=== PATIENT | male | born 2000 | race Two or more races ===

== ENCOUNTER 2024-12-16 12:22 | Emergency (ER) | payer OTHER ==
[~2024-12-16] VITALS: Ht 177.8 cm; Wt 127.9 kg
[2024-12-16 13:22] VITALS: BP 150/85; PULSE 77; RESP 17; TEMP 97.7; O2SAT 97
--- NOTE | 2024-12-16 13:42 | ED.PDOC ---
Musculoskeletal HPI Comments A 24 YEAR OLD MALE PRESENTS TO THE ED WITH CHIEF COMPLAINT OF RIGHT ANKLE INJURY. 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 PATIENT RELAYS THAT HE NOW HAS INCREASED PAIN, SWELLING, AND BRUISING TO THE RIGHT ANKLE. PATIENT DENIES ANY NUMBNESS, WEAKNESS, TINGLING, OR FURTHER INJURY. NO OTHER SYMPTOMS REPORTED AT THIS TIME OF CARE. Chief Complaint: Lower Extremity Time Seen by MD: 13:39 Primary Care Provider: NONE Reviewed Notes: Nurses Notes, Medications, Allergies Allergies: Coded Allergies: NO KNOWN ALLERGIES (Unverified , 12/16/24) Home Meds Active Scripts Ibuprofen (Ibuprofen) 800 Mg Tab, 1 TAB PO TID, #30 TAB Prov:TALHA MURDOCK 12/16/24 Information Source: Patient Mode of Arrival: Ambulatory Location: Right Extremity Location: Ankle Timing: Days Prehospital treatment: None Severity: Moderate Able to Move Extremity: Yes Bear Weight: Fully Pain: Moderate Mechanism: Twisting Circumstances: Fall Onset of Symptoms: After Trauma Symptoms: Swelling, Pain DVT Risk Factors: NONE Last Tetanus: UTD Associated signs and symptoms: Ankle pain Past Medical History PAST MEDICAL HISTORY: Denies Surgical History: Denies all surgeries Family History Family History: Reviewed,noncontributory to illness Social History Smoker: Non-Smoker Alcohol: Denies ETOH Use Drugs: Denies Drug Use Lives In: Home Constitutional: denies: chills, diaphoresis, fatigue, fever, malaise, sweats, weakness, others EENTM: denies: blurred vision, double vision, ear bleeding, ear discharge, ear drainage, ear pain, ear ringing, eye pain, eye redness, hearing loss, mouth pain, mouth swelling, nasal discharge, nose bleeding, nose congestion, nose pain, photophobia, tearing, throat pain, throat swelling, voice changes, others Respiratory: denies: cough, hemoptysis, orthopnea, SOB at rest, shortness of breath, SOB with excertion, stridor, wheezing, others Cardiovascular: denies: chest pain, dizzy spells, diaphoresis, Dyspnea on exertion, edema, irregular heart beat, left arm pain, lightheadedness, palpitations, PND, syncope, others Gastrointestinal: denies: abdomen distended, abdominal pain, blood streaked bowels, constipated, diarrhea, dysphagia, difficulty swallowing, hematemesis, melena, nausea, poor appetite, poor fluid intake, rectal bleeding, rectal pain, vomiting, others Genitourinary: denies: burning, dysuria, flank pain, frequency, hematuria, inco ntinence, penile discharge, penile sore, pain, testicle pain, testicle swelling, urgency, others Neurological: denies: dizziness, fainting, headache, left sided numbness, left sided weakness, numbness, paresthesia, pre-existing deficit, right sided numbness, right sided weakness, seizure, speech problems, tingling, tremors, weakness, others Musculoskeletal: reports: joint pain, joint swelling, others (RT ANKLE PAIN AND SWELLING); denies: back pain, gout, muscle pain, muscle stiffness, neck pain Integumetry: denies: bruises, change in color, change in hair/nails, dryness, laceration, lesions, lumps, rash, wounds, others Allergic/Immunocompromised: denies: Difficulty Healing, Frequent Infections, Hives, Itching, others Hematologic/Lymphatic: denies: anemia, blood clots, easy bleeding, easy bruising, swollen glands, others Endocrine: denies: excessive hunger, excessive sweating, excessive thirst, excessive urination, flushing, intolerance to cold, intolerance to heat, unexplained weight gain, unexplained weight loss, others Psychiatric: denies: anxiety, bipolar disorder, depression, hopeless, panic disorder, schizophrenia, sleepless, suicidal, others All Other Systems: Reviewed and Negative Physical Exam General Appearance: No Apparent Distress, Obese HEENT: Normal ENT Inspection, PERRL/EOMI, Pharynx Normal, TMs Normal Neck: Full Range of Motion, Non-Tender, Normal, Normal Inspection Respiratory: Chest Non-Tender, Lungs Clear, No Accessory Muscle Use, No Respiratory Distress, Normal Breath Sounds Cardiovascular: No Edema, No JVD, No Murmur, No Gallop, Normal Peripheral Pulses, Regular Rate/Rhythm Breast Exam: Deferred Gastrointestinal: No Organomegaly, Non Tender, No Pulsatile Mass, Normal Bowel Sounds, Soft Genitalia: Deferred Pelvic: Deferred Rectal: Deferred Extremities: Decreased range of motion, No calf tenderness, Normal capillary refill, No pedal edema, Tender (AND MILD SWELLING ON RIGHT ANKLE, NO BONY TENDERNESS AND DEFORMITY. ) Musculoskeletal : Apperance: Normal Neurologic: Alert, clocksmith II-XII nml as Tested, No Motor Deficits, Normal Affect, Normal Mood, No Sensory Deficits Cerebellar Function: Normal Reflexes: Normal Skin: Dry, Normal Color, Warm Peripheral Pulses: 2+ carotid (R), 2+ carotid (L), 2+ dorsalis pedis (R), 2+ dorsalis pedis (L) Lymphatic: No Adenopathy Was a procedure done? Was a procedure done?: No Differential Diagnosis EXT Differential Diagnosis: Fracture, Sprain, Dislocation, Contusion, Strain, Bursitis X-Ray, Labs, Meds, VS Vital Signs Date Time Temp Pulse Resp B/P (MAP) Pulse Ox O2 Delivery O2 Flow Rate FiO2 12/16/24 13:22 97.7 77 17 150/85 (106) 97 97.7 12/16/24 13:22 77 12/16/24 12:40 97.7 77 17 150/85 (106) 98 97.7 PATIENT: DANUTA DANGT: [id number]: [id number] : 2000 LOC: ER ROOM / BED: / AGE / SEX: 24 / M ADM STATUS: REG ER SERVICE [id number] ORDERING PHYSICIAN: TALHA MURDOCK PROCEDURE(s): RANKL - R ANKLE 3 VIEW REASON: INJURY ORDER NUMBER(s): [id number], ACCESSION NUMBER(s): [id number] Indication: INJURY Technique: 3 views right ankle Comparison: None FINDINGS/IMPRESSION: No radiographic evidence for acute fracture or dislocation. Diffuse right ankle soft tissue edema. This is most pronounced along the lateral malleolus. ATED BY: LASHAE RUSS MD DICTATED DATE/TIME: 12/16/241413 SIGNED BY: LASHAE RUSS MD SIGNED DATE/TIME: 12/16/241413 CC: X-Ray, Labs, Meds, VS Comment EXTERNAL MEDICAL RECORDS REVIEWED: [NONE] INDEPENDENT HISTORIANS: [NONE] SOCIAL DETERMINANTS OF HEALTH: [NONE] LABS ORDERED: NONE REVIEWED AND INTERPRETED RESULTS: RT ANKLE XR: NO FX AND DISLOCATION, READ BY ME, PENDING RADIOLOGIST READING. IMAGING ORDERED: RT ANKLE XR TREATMENTS ORDERED: NONE PROCEDURES PERFORMED: NONE CRITICAL CARE TIME: NONE I HAVE DISCUSSED THE PATIENT WITH THE ATTENDING PHYSICIAN DR. KUO AND HE AGREES WITH THE PATIENT'S PLAN OF CARE AND DISPOSITION. BASED ON HISTORY OF PRESENT ILLNESS, AND PHYSICAL EXAM, PATIENT WILL BE DISCHARGED HOME. DISCUSSED PLAN FOR DISCHARGE HOME WITH RX [MOTRIN 800MG]. MEDICATION WARNINGS GIVEN. SHARED DECISION MAKING: DISCUSSED WITH PATIENT THAT THEIR WORKUP WAS NORMAL. PATIENT INSTRUCTED TO FOLLOW UP WITH PRIMARY CARE PROVIDER IN 1-2 DAYS FOR RE- EVALUATION OF SYMPTOMS. PATIENT VERBALIZES UNDERSTANDING TO RETURN TO ED FOR NEW OR WORSENING SYMPTOMS OR IF FOLLOW UP WITH PCP CANNOT BE OBTAINED. PATIENT FEELS COMFORTABLE GOING HOME AT THIS TIME. ALL QUESTIONS ADDRESSED AT TIME OF DISCHARGE. Time of 1ST Reevaluation: 14:28 Reevaluation 1ST: Improved Patient Education/Counseling: Diagnosis, Treatment, Need For Follow Up Family Education/Counseling: Diagnosis, Treatment, No Family Present Medical Screening: No EMC Exist At This Time Departure 1 Departure Time of Disposition: 14:28 Impression: Primary Impression: Sprain of ankle, right Qualified Codes: S93.401A - Sprain of unspecified ligament of right ankle, initial encounter Disposition: 01 HOME / SELF CARE / HOMELESS Condition: Stable Additional Instructions: FOLLOW-UP WITH PCP IN 1 TO 2 DAYS. TAKE MEDICATIONS PRESCRIBED. RETURN TO ED FOR ANY NEW OR WORSENING SYMPTOMS. e-Prescriptions Ibuprofen (Ibuprofen) 800 Mg Tab 1 TAB PO TID, #30 TAB Prov: TALHA MURDOCK 12/16/24 Discharged With: Self Critical Care Note Critical Care Time?: No Stability Stability form required: No Heart Score Heart Score: Heart Score Response (Comments) Value History N/A 0 EKG N/A 0 Age N/A 0 Risk Factors N/A 0 Troponin N/A 0 Total 0 I personally scribed for TALHA MURDOCK ([email or web address]) on 12/16/24 at 13:42. Electronically submitted by Yovanny Reddy ([email or web address]). TALHA MURDOCK December 16, 2024 13:42
--- NOTE | 2024-12-16 14:16 | DVH ---
Indication: INJURY Technique: 3 views right ankle Comparison: None FINDINGS/IMPRESSION: No radiographic evidence for acute fracture or dislocation. Diffuse right ankle soft tissue edema. This is most pronounced along the lateral malleolus.
[2024-12-16] MEDS ORDERED: IBUP-1456 PO (14:26)
== END 2024-12-16 14:29 | disposition home or self-care (01) ==
LOC: ER 12:22
DX: S93.491A Sprain of other ligament of right ankle, initial encounter (principal); X50.1XXA Overexertion from prolonged static or awkward postures, initial encounter; Y93.89 Activity, other specified; Y92.89 Other specified places as the place of occurrence of the external cause; Y99.8 Other external cause status
CPT/HCPCS: 73610